=== PATIENT | female | born 1955 | race Caucasian/White ===

== ENCOUNTER 2023-09-10 13:05 | Emergency (ER) | payer MEDICARE, MEDICAID ==
[~2023-09-10] VITALS: Ht 152.4 cm; Wt 60.0 kg
[~2023-09-10 13:05] MED LIST: ACET-3161 GT; DICL50TA9 PO; IBUP-2077 PO; TRAM50TA3 PO
[2023-09-10 13:10] VITALS: TEMP 99.1; O2SAT 100
[2023-09-10 16:24] LABS: CHLORIDE 109 mEq/L (98-107); SODIUM 140 mEq/L (136-145)
[2023-09-10 16:25] LABS: CALCIUM 9.7 mg/dL (8.7-10.4); CARBON DIOXIDE 27 mEq/L (21-32)
[2023-09-10] MEDS: ACETAMINOPHEN 325MG TABLET PO NR (16:29)
[2023-09-10 16:30] LABS: CREATININE 0.6 mg/dL (0.6-1.0); GLUCOSE 106 mg/dL (70-105); UREA NITROGEN BLOOD 10 mg/dL (9-23)
[2023-09-10 16:33] LABS: HEMATOCRIT 35.5 % (36.0-48.0); HEMOGLOBIN 11.9 g/dL (12.0-16.0); MEAN CORPUSCULAR HEMOGLOBIN 30.2 pg (28.0-32.0); MEAN CORPUSCULAR HGB CONC 33.5 g/dL (31.0-37.0); PLATELET 278 x1000/uL (130-400); RED BLOOD CELL COUNT 3.94 mill/uL (4.2-5.4); RED CELL DISTRIBUTION WIDTH 12.9 % (11.6-14.6); WHITE BLOOD COUNT 12.3 x1000/uL (4.5-11.0)
[2023-09-10 17:02] LABS: INR 0.9; PARTIAL THROMBOPLASTIN TIME 24.8 sec (23.4-31.0); PROTHROMBIN TIME 10.2 sec (9.6-11.0)
[2023-09-10 20:10] VITALS: BP 127/48; PULSE 102; RESP 16
[2023-09-10] MEDS: KETOROLAC 60MG/2ML VIAL IM NR (20:10)
[2023-09-10] MEDS: IOHEXOL-300 100 ML BOTTLE ONE (22:29)
== END 2023-09-10 22:31 | disposition home or self-care (01) ==
LOC: ER 13:05
DX: K11.20 Sialoadenitis, unspecified (principal); E78.00 Pure hypercholesterolemia, unspecified; Z90.710 Acquired absence of both cervix and uterus
CPT/HCPCS: 99285; 70491; 80048; 85027; 85610; 85730; 36415; 96372; Q9967; J1885